=== PATIENT | female | born 1935 | race Caucasian/White ===

== ENCOUNTER 2018-05-07 07:14 | Inpatient (IN) | payer OTHER ==
[~2018-05-07] VITALS: Ht 160 cm; Wt 54.4 kg
[~2018-05-07 07:14] MED LIST: LISI40TA4 PO; METF100028 PO; OMEP20TA56 PO
[2018-05-07 07:30] VITALS: BP 143/70
--- NOTE | 2018-05-07 07:30 | NUR ---
REPORT RECEIVED FROM ROD RN, PT AAOX4 LAO SPEAKING, PT JUST ARRIVED FROM [facility] (DIRECT ADMIT), S/[place] FALL [place]ER[place] AFTER FEELING DIZZY, HIT HEAD, LAC TO LEFT SIDE OF SCALP, DENIES LOC, LAC REPAIRED AT [facility] WITH AMANDA, + LEFT FEMORAL NECK FX, T SPINE COMPRESSION FX, PT MOVES ALL EXT, LEFT LEG WITH DECREASED MOVEMENT D/T PAIN, BUT GOOD SENSATION AND +PEDAL PULSE, PT WEARING BODY BRACE, CT HEAD NEGATIVE, C-SPINE NEGATIVE PER [facility] REPORTS, DARBY ALREADY IN PLACE, DRAINING LIGHT YELLOW URINE, DAUGHTER AND GRANDDAUGHTER AT BEDSIDE, PT C/O MINIMAL PAIN IN LEFT LEG, AND 5/10 MIRELES, WILL PAGE ADMITTING FOR ORDERS, WILL CONTINUE TO MONITOR
--- NOTE | 2018-05-07 07:50 | NUR ---
DR HENSON CALLED BACK AFTER PAGE, NO ADMISSION ORDER RECEIVED, PER DR HENSON, PT NEEDS TO BE TRANSFERED TO [facility] WITH ORTHO PEDIC SURGEON, OUR ORTHO DR MONSIVAIS NOT AVAILABLE AT THIS TIME, SS REQUEST ORDER, PAIN MED, HOME MED AND DIET ORDER RECIEVED, [employer] PRESS TRADES WORKER CONTACTED REGARDING NEED FOR TRANSFER. PT'S FAMILY INFORMED OF THE PLAN.
[2018-05-07] MEDS ORDERED: HYDROcodone/APAP 10/325 MG 1 TAB TAB PO PRN (08:15)
[2018-05-07] MEDS ORDERED: DEXTROSE 50% 50 ML SYR IVP PRN (08:35)
[2018-05-07] MEDS ORDERED: BLOOD GLUCOSE MONITORING 1 DEV DEV FS SCH (08:35)
[2018-05-07] MEDS ORDERED: INSULIN LISPRO SLIDING SCALE 100 UNITS/ML VIAL SUBQ PRN (08:35)
[2018-05-07] MEDS ORDERED: METOPROLOL 25 MG TAB PO SCH (09:00)
[2018-05-07] MEDS ORDERED: FUROSEMIDE 20 MG TAB PO SCH (09:00)
[2018-05-07 09:02] LABS: BASOPHILS % (AUTO) 0.4 % (0.0-2.0); EOSINOPHILS % (AUTO) 0.1 % (0.0-4.0); HEMATOCRIT 30.9 % (36-48); HEMOGLOBIN 10.3 g/dL (12.0-16.0); LYMPHOCYTES # (AUTO) 1.3 K/uL (2.5-16.5); LYMPHOCYTES % (AUTO) 16.3 % (20.5-51.1); MEAN CORPUSCULAR HEMOGLOBIN 31 pg (27-31); MEAN CORPUSCULAR HGB CONC 33 g/dL (33-37); MEAN CORPUSCULAR VOLUME 92.8 fL (80-94); MONOCYTES # (AUTO) 0.8 K/uL (0.8-1.0); MONOCYTES % (AUTO) 9.4 % (1.7-9.3); NEUTROPHILS % (AUTO) 73.8 % (42.2-75.2); PLATELET COUNT (AUTO) 246 K/uL (140-450); RED BLOOD CELL COUNT(AUTO) 3.32 MIL/uL (4.20-5.40); RED CELL DISTRIBUTION WIDTH 13.8 % (11.6-13.7); WHITE BLOOD COUNT (AUTO) 8.2 K/uL (4.8-10.8)
--- NOTE | 2018-05-07 09:09 | NUR ---
RECEIVED ORDER TO TRANSFER THIS PATIENT TO [facility]. I CALLED [facility] AND SPOKE WITH BRODIE AND FAXED THE FACE SHEET AND ORDER TO HER. SHE SAID DR. HENSON ALREADY CALLED HER ABOUT THIS ADMIT.
--- NOTE | 2018-05-07 09:13 | NUR ---
CALLED [facility] AND SPOKE WITH ANITRA . SHE WILL GET ME THE AUTH.
[2018-05-07 09:17] LABS: ALBUMIN 3.1 g/dL (3.4-5.0); ANION GAP 14.6 (8-16); ASPARTATE AMINOTRANSFERASE 18 U/L (15-37); CARBON DIOXIDE 24.5 mmol/L (21-32); CHLORIDE 103 mmol/L (98-107); GLUCOSE 187 mg/dL (74-106); POTASSIUM 3.1 mmol/L (3.5-5.1); SODIUM SERUM 139 mmol/L (136-145); TOTAL BILIRUBIN 0.4 mg/dL (0.0-1.0); UREA NITROGEN, BLOOD 21 mg/dL (7-18)
--- NOTE | 2018-05-07 10:13 | NUR ---
FAXED ORDER AND FACE SHEET TO [facility] [phone]. PANCHO [phone]
--- NOTE | 2018-05-07 10:39 | NUR ---
SPOKE WITH PANCHO FROM [facility]. AUTH FOR BOTH [facility] AND TRANSPORT IS [id number]. I CALLED [facility] AND SPOKE WITH BRODIE. SHE SAID THE PATIENT CAN GO TO ROOM 493A UNDER DR. HENSON. [facility] TO STOP IN ER FIRST FOR THE ARM BAND. PHONE REPORT TO [phone]. I GAVE BRODIE GROOVING MACHINE OPERATOR AT [facility] THE AUTH NUMBER. I CALLED [facility] AND SET UP TRANSPORT FOR 11:30A.M. INFORMED THEM TO STOP IN ER FIRST. SPOKE WITH SUSAN SOLANO AND INFORMED HER OF THE ROOM AND THE NUMBER TO CALL FOR REPORT. INFORMED HER OF THE TIME OF EMBEDDED SYSTEMS DESIGNER.
--- NOTE | 2018-05-07 10:55 | NUR ---
REPORT CALLED TO EMMA SOLANO AT [facility], PT [facility] TO ARRIVE AT 1130 FOR TRANSFER.
[2018-05-07 11:40] VITALS: BP 124/62
--- NOTE | 2018-05-07 11:45 | NUR ---
[facility] AT BS, REPORT GIVEN TO EMT, PT AWAKE ALERT OX4, PAIN IS MINIMAL AT HTIS TIME, GOOD CMS OF LEFT LOER EXT, IV SITE WNL, TRANSFERED TO [facility], TAKEN TO [facility] AT THIS TIME ACCOMPANIED BY GRAND DAUGHTER.
== END 2018-05-07 11:45 | disposition short-term general hospital (02) | DRG 536 ==
LOC: MTU 07:14
PROVIDERS: ADMIT Internal Medicine Pulmonary Disease; ATTEND Internal Medicine Pulmonary Disease
DX: S72.002A Fracture of unspecified part of neck of left femur, initial encounter for closed fracture (principal); S22.009A Unspecified fracture of unspecified thoracic vertebra, initial encounter for closed fracture; S32.009A Unspecified fracture of unspecified lumbar vertebra, initial encounter for closed fracture; E11.9 Type 2 diabetes mellitus without complications; I10 Essential (primary) hypertension; E78.5 Hyperlipidemia, unspecified; S09.90XA Unspecified injury of head, initial encounter; S50.02XA Contusion of left elbow, initial encounter; S01.01XA Laceration without foreign body of scalp, initial encounter; W18.39XA Other fall on same level, initial encounter; Y93.01 Activity, walking, marching and hiking; Y92.89 Other specified places as the place of occurrence of the external cause; Y99.8 Other external cause status
CPT/HCPCS: 36415; 80053; 82948; 85025; J1815